=== PATIENT | male | born 1945 | race Caucasian/White ===

== ENCOUNTER → 2017-11-09 | Outpatient (CLI) | payer OTHER ==
[2017-11-09 12:02] LABS: ANION GAP 5 mmol/L (5-15); CALCIUM 8.6 mg/dL (8.5-10.1); CHLORIDE 108 mmol/L (98-107); CREATININE 0.85 mg/dL (0.7-1.3)
== END | disposition home or self-care (01) ==
LOC: RAD 11:32
PROVIDERS: ATTEND Internal Medicine Gastroenterology
DX: D12.3 Benign neoplasm of transverse colon (principal); K76.0 Fatty (change of) liver, not elsewhere classified; K64.8 Other hemorrhoids; K57.30 Diverticulosis of large intestine without perforation or abscess without bleeding; Z86.010 Personal history of colon polyps
CPT/HCPCS: 36415; 74177; 80048

== ENCOUNTER 2020-02-21 13:30 | Emergency (ER) | payer OTHER ==
[~2020-02-21] VITALS: Ht 193 cm; Wt 111.6 kg
--- NOTE | 2020-02-21 14:15 | NUR ---
PT SITTING UP IN [place] NOTED. RESPIRATIONS EVEN UNLABORED/SKIN WARM AND DRY. PT REPORTS INTERMITTENT L CHEST/SUBSTERNAL "ACHING" CHEST PRESSURE AND IRREGULAR HEART BEAT "IT FEELS LIKE MY HEART IS DOING FLIPS" X SEVERAL MONTHS. PT REPORTS THAT UNTIL RECENTLY EPISODES WERE MORE OFTEN AT NIGHT WHILE LAYING IN BED AND WERE RELIEVED WITH CHANGE IN POSITION. PT REPORTS TODAY'S EPISODE HAS BEEN CONTINUOUS SINCE THIS AM. PT DENIES ASSOCIATED S/S, INCLUDING N/V/SOB/DIAPHORESIS. DENIES RECENT ILLNESS/PRODUCTIVE COUGH/FEVER/BLE PAIN OR EDEMA. SIGNIFICANT HX INCLUDES HTN; NO HX OF ARRHYTHMIA. BP/SPO2/ECG MONITORING IN PLACE. NSR ON MONITOR. IV ESTABLISHED AND LABS DRAWN. SO AT BEDSIDE. PT DENIES PAIN OR NEED FOR PAIN/NAUSEA MEDICATIONS. Addendum: 02/21/20 at 1425 by LWEGENER PT REPORTS TAKING 325MG ASA AROUND NOON
[2020-02-21 14:36] LABS: ALANINE AMINOTRANSFERASE 37 U/L (12-78); ALBUMIN 3.9 g/dL (3.4-5.0); ANION GAP 5 mmol/L (5-15); BASOPHILS # (AUTO) 0.03 x10^3/uL (0-0.1); BASOPHILS % (AUTO) 0 % (0-1); CHLORIDE 109 mmol/L (98-107); EOSINOPHILS # (AUTO) 0.15 x10^3/uL (0-0.4); EOSINOPHILS % (AUTO) 2 % (1-7); LYMPHOCYTES # (AUTO) 1.41 x10^3/uL (1-3.4); LYMPHOCYTES % (AUTO) 21 % (22-44); MD NO; MEAN CORPUSCULAR HEMOGLOBIN 31.1 pg (27.5-34.5); MEAN CORPUSCULAR HGB CONC 33.5 g/dL (33.2-36.2); MEAN CORPUSCULAR VOLUME 92.6 fL (81-97); MEAN PLATELET VOLUME 8.9 fL (7.4-10.4); MONOCYTES # (AUTO) 0.43 x10^3/uL (0.2-0.8); MONOCYTES % (AUTO) 6 % (2-9); NEUTROPHILS # (AUTO) 4.69 x10^3/uL (1.8-6.8); NEUTROPHILS % (AUTO) 70 % (42-75); PLATELET COUNT 233 x10^3/uL (130-400); RED CELL DISTRIBUTION WIDTH 12.4 % (9.4-14.8)
[2020-02-21 14:41] LABS: ALKALINE PHOSPHATASE 73 U/L (45-117); BILIRUBIN,TOTAL 0.6 mg/dL (0.2-1.0); FREE T4 (FREE THYROXINE) 1.17 ng/dL (0.76-1.46); TOTAL PROTEIN 7.2 g/dL (6.4-8.2); TROPONIN I < 0.015 ng/mL (0.000-0.045)
[2020-02-21 15:07] VITALS: BP 123/70
--- NOTE | 2020-02-21 15:44 | NUR ---
DC EDUCATION PROVIDED BY ABELINO HALL. PT AMBULATED STEADILY TO DC WITH ABELINO HALL AND SPOUSE
== END 2020-02-21 15:45 | disposition home or self-care (01) ==
LOC: ED 14:24
DX: R07.89 Other chest pain (principal); R00.2 Palpitations; I10 Essential (primary) hypertension; I45.10 Unspecified right bundle-branch block; I44.4 Left anterior fascicular block
CPT/HCPCS: 36415; 71045; 80053; 84439; 84443; 84484; 85025; 93005; 99285

== ENCOUNTER → 2020-03-13 | Outpatient (CLI) | payer OTHER | END | disposition home or self-care (01) | LOC: CVU 07:31 | PROVIDERS: ATTEND Internal Medicine Cardiovascular Disease | DX: R07.9 Chest pain, unspecified (principal) | CPT/HCPCS: 93306 ==